=== PATIENT | male | born 1930 | race Hispanic/Latino ===

== ENCOUNTER 2020-08-17 09:19 | Emergency (ER) | payer MEDICARE ==
[~2020-08-17] VITALS: Ht 170.2 cm; Wt 67.6 kg
[2020-08-17] MEDS ORDERED: KETOROLAC TROMETHAMINE 30 MG/ML VIAL IV STA (09:38)
[2020-08-17] MEDS ORDERED: HYDROCODONE/APAP 5MG-325MG TAB PO ONE (09:45)
[2020-08-17] MEDS ORDERED: ONDANSETRON HCL 4 MG ORAL DISINTEGRATING TAB ONE (10:00)
[2020-08-17] MEDS ORDERED: ONDANSETRON HCL 4 MG ORAL DISINTEGRATING TAB PO ONE (10:15)
[2020-08-17] MEDS ORDERED: ONDANSETRON HCL INJ 2MG/ML 2ML 2 MG/ML VIAL IV STA (11:04)
[2020-08-17] MEDS ORDERED: SODIUM CHLORIDE 0.9% 1000ML 1,000 ML IV STA (11:04)
[2020-08-17] MEDS ORDERED: SODIUM CHLORIDE 0.9% 1000ML 1,000 ML ONE (11:21)
[2020-08-17] MEDS ORDERED: ULTRAM50 MG PO (12:54)
[2020-08-17 12:59] VITALS: BP 174/93
[2020-08-17] MEDS ORDERED: LISINOPRIL40 MG (14:38)
[2020-08-17] MEDS ORDERED: [UNRECOGNIZED DRUG - OTHER] (14:38)
[2020-08-17] MEDS ORDERED: BACLOFEN10 MG PO (14:38)
[2020-08-17] MEDS ORDERED: LIPITOR40 MG (14:38)
[2020-08-17] MEDS ORDERED: AMLODIPINE BESY10 MG PO (14:38)
== END 2020-08-17 13:00 | disposition home or self-care (01) ==
LOC: FSED 09:38
DX: M48.56XA Collapsed vertebra, not elsewhere classified, lumbar region, initial encounter for fracture (principal); R00.0 Tachycardia, unspecified; I10 Essential (primary) hypertension
CPT/HCPCS: 72100; 80048; 85025; 96372; 96374; 99284; J1885; J2405; J7030; Q0162